=== PATIENT | female | born 1970 | race Caucasian/White ===

== ENCOUNTER 2016-11-20 18:47 | Observation (INO) | payer MEDICAID ==
[~2016-11-20] VITALS: Ht 154.9 cm; Wt 51.7 kg
--- NOTE | ~2016-11-20 | DS ---
PATIENT'S NAME: JANKI BISHOP [facility] AGE: 46 Y [address] ROOM: [id number] [place], [place] [address] LOCATION: [facility] ADMIT DATE: 11/20/2016 Discharge Summary DISCHARGE DATE: FAMILY PHYSICIAN: Physician, Unknown ATTENDING PHYSICIAN: Derick Reid This is a dictation about the overnight event that happened on November 22, 2016, in the early childhood hours. I worked night today and I was not taking care of the patient during her regular day times (I did H/P on patient's day of admission but patient was assigned to different hospitalist the following day after her H/P). The official discharge summary will be dictated by the hospitalist who was taking care of the patient during the daytime. I am the director visual working tonight and just covering tonight, and this dictation is about the event that happened in the early childhood of November 22, 2016. Patient was admitted here for alcohol withdrawal seizure secondary to alcohol use disorder. In the early childhood hours of November 22, 2016, the patient became restless and agitated and wanted to leave the hospital. I came to see the patient. After speaking to the patient, it seemed that the patient was disoriented to people, time, and place. The patient wanted to leave the hospital and insisted that we let her go. The patient actively signed the leave against medical advice form and tried to leave the hospital. Given that the patient is disoriented to people, time, and place, security was notified and the patient was stopped before she could exit the building. I went down with the bottle house quality control technician, Marisol, to see the patient and tried to convince her to stay given that the patient is mentally incapable of making decisions for herself. The patient pushed me away and left the main entrance door, and security incident response specialist and I followed her and also bottle house quality control technician to try to bring her back. The patient would not come back and was combative against us, and [place] [employer] was notified, and security was following the patient to not lose sight of the patient. When police of [place] Department came by, the police shift commander spoke to the patient and brought her back in the police car, and after the police shift commander spoke to the patient, police also agreed that the patient is disoriented, but the patient denies any suicidal ideation or homicidal intent. I spoke to the insurance agency owner, and I explained to him about the reason for admission and the fact that the patient is mentally incompetent to make decision for herself and that we have been trying to call her who is staying at a nearby hotel because they live in [place], [place], but 's phone was off and the nurse left a voice mail, at that time the had not called back. The insurance agency owner said that they cannot EPC her because the patient is not suicidal or homicidal and they cannot force against her will to stay in the hospital even though she is disoriented to people, time, and place. Eventually, the patient spoke to her over the phone when patient called her , but she would not give me the phone to let me talk to her to explain the situation and what was going on. Eventually, police was able to call the again and I was able to speak to the . In addition, before I spoke to the , I already called the on-call Risk Management [place] and explained to her about the situation and what would be the next appropriate step to take in this case. Given that the patient is mentally incompetent to make decisions for herself, Risk Management also PATIENT'S NAME: [facility] AGE: 46 Y [address] ROOM: [address] [address] LOCATION: [facility] ADMIT DATE: 11/20/2016 Discharge Summary DISCHARGE DATE: FAMILY PHYSICIAN: Physician, Unknown ATTENDING PHYSICIAN: Derick Reid agreed that we should ask Yefri Dalal officer to EPC the patient to keep her in the hospital and to be evaluated by a psychiatrist. Then, I spoke to the insurance agency owner again about the conversation I had with the Risk Management and my assessment, but police still refused to EPC her saying that she is not homicidal or suicidal and by the law of the [facility], that the policemen cannot force her to stay here in the hospital. Then, I spoke to the patient's over the phone about all the events, and the patient's says that he will come here to see the patient right now and he will try to convince her to stay in the hospital, but if the patient refuses, then the is going to take her home, he is not going to let the patient stay here in the hospital despite knowing that she is disoriented to people, time, and place and that she is leaving against medical advice. The patient's says that he will take her back home and he will be with her at all times and watch her very closely knowing all the risks of leaving the hospital without completing the proper treatment. The patient's understands all the risks, and when the patient's showed up, he spoke to the policemen, at that time there were 2 policemen (an addtional insurance agency owner showed up), and he also spoke to his , and I had to go to attend to urgent matter because another patient required my attention on the other floor of the hospital. According to the security incident response specialist Elo, when the showed up, the patient refused to stay in the hospital and the patient's took her back to the hotel. The 2 policemen were present and they also agreed to let the take her back. Both policemen said that they cannot EPC her against her will given that the patient's agreed to take the patient home knowing that she is disoriented and did not finish the appropriate medical treatment, and the and the patient both refused to stay in the hospital. I got this information from the security incident response specialist given that I was attending an urgent matter for another patient on the floor which required my immediate attention. When I came back down to the main entrance to look for the patient and the patient's , the policemen and the patient and the patient's had already left the hospital. I tried to call the patient's back again just to double check, but the patient's phone was off and I could not even leave a voicemail. Then, I called Psychiatry. My plan was to call Psychiatry while the patient's was on the way here; however, after speaking to the Psychiatry and went back to check on the patient, the patient had already left. I called the on-call psychiatrist, Dr. Murphy, . I explained the entire events in sequence and the occurred events to the psychiatrist, and he also agreed that in the [facility], the policemen have the right to EPC the patient up to their determination and discretion. In this case, the patient is clearly mentally incompetent to people, time, and place, but 2 policemen both assessed the patient and stated that they cannot EPC the patient because the patient's is willing to take her back home; therefore, both policemen refused to EPC the patient and let the patient go back home with her . Psychiatrist, Dr. Murphy told me that in this case as a physician we cannot do anything given that in the [facility], insurance agency owner is the individual who makes the PATIENT'S NAME: JANKI BISHOP [facility] AGE: 46 Y [address] ROOM: [place] [address] LOCATION: [facility] ADMIT DATE: 11/20/2016 Discharge Summary DISCHARGE DATE: FAMILY PHYSICIAN: Physician, Unknown ATTENDING PHYSICIAN: Derick Reid decision for EPC. Therefore, in this case, both policemen refused to EPC the patient and then let the patient go home with . I then notified the bottle house quality control technician again about the occurred events. Both policemen understand that the patient is mentally incompetent given that the patient is disoriented to people, time, and place, but both policemen still refused to EPC the patient saying that she is not suicidal or homicidal and they cannot force her to stay in the hospital and will be going home with her who also refused to let the patient stay in the hospital and wanted and was willing to take patient home. The complete discharge summary will be dictated by the hospitalist who was taking care of the patient during her daytime. This is only a summary of the overnight event as I was not the daytime physician that was following her. WILLIAM ZHAO MD CC/giannil /[id number] d: 11/22/16 0525 t: 11/29/16 1055, DISCHARGE SUMMARY
--- NOTE | ~2016-11-20 | DS ---
PATIENT'S NAME: JANKI BISHOP [facility] AGE: 46 Y [address] ROOM: [address] [place], [place] [address] LOCATION: [facility] ADMIT DATE: 11/20/2016 Discharge Summary DISCHARGE DATE: 11/22/2016 FAMILY PHYSICIAN: Physician, Unknown ATTENDING PHYSICIAN: Franklin MOREIRA PRINCIPAL DIAGNOSIS: Alcohol withdrawal seizures. SECONDARY DIAGNOSES: 1. Anxiety. 2. Asthma. 3. Acute metabolic encephalopathy due to alcoholic withdrawal. HOSPITAL COURSE: A 46-year-old lady with a longstanding history of alcohol abuse who has been sober for a while. She started drinking and then stopped drinking again. She was admitted to the hospital because of the tonic-clonic seizures. A CAT scan of the head was done, which was unremarkable. Blood work was done, which did show hypokalemia as well as hypomagnesemia. test was negative. Alcohol level was negative. EKG performed showed QTc prolongation at 508 milliseconds, sinus tachycardia with heart rate in the 100s, but no acute ischemic changes. The patient was admitted to our hospital for alcohol withdrawal per [place] protocol. We corrected her electrolyte abnormalities and sent her to the floor. Overnight, it appeared from the discharge summary as well as communication from the overnight physician, Dr. Gates, that the patient became disoriented, and wanted to leave AMA. Attending physician at that point deemed her incompetent to make that decision. [place] [employer] was contacted as well as was contacted. Police refused to EPC her given she was not homicidal or suicidal. decided to take the patient with him and not keep her in the hospital; so, the patient was discharged AMA. MD SID SWEENEY/nilam /[id number] d: 12/07/16 0229 t: 12/08/16 1221, DISCHARGE SUMMARY
--- NOTE | ~2016-11-20 | DS ---
PATIENT'S NAME: JANKI BISHOP [facility] AGE: 46 Y [address] ROOM: [address] [place], [place] [address] [place] [facility] DATE: 11/20/2016 Discharge Summary DISCHARGE DATE: 11/22/2016 FAMILY PHYSICIAN: Physician, Unknown ATTENDING PHYSICIAN: Franklin MOREIRA ADDENDUM: To the overnight event summary on November 22, 2016. OVERNIGHT EVENTS: On November 22, 2016. I called the [place] [employer] and I got the name of the mounted police officer who were here and the public service officer arriving on the scene was officer Douglas Gar and second steward who arrived on the scene was officer Iqra Bowers. The risk management that I spoke to on the phone was Justino. Hospital assistant facility manager was Marisol. The security patrol driver was Elo. I tried to call the again to follow up, but the phone was still off and could not leave voicemail. I worked night today and did not follow the patient during regular days. The full discharge summary will be dictated by the primary attending physician taking care of the patient during the daytime. This summary is only an overnight event summary as I was only covering the nights. MD ANETTE TINOCO/nilam /[id number] d: 11/22/16529 t: 11/29/16 1105, DISCHARGE SUMMARY
--- NOTE | ~2016-11-20 | HP ---
PATIENT'S NAME: JANKI BISHOP [facility] AGE: 46 Y [address] ROOM: [id number] [place], [place] [address] LOCATION: [facility] ADMIT DATE: 11/20/2016 History & Physical DISCHARGE DATE: FAMILY PHYSICIAN: PHYSICIAN, UNKNOWN ATTENDING PHYSICIAN: Franklin MOREIRA DATE OF SERVICE: CHIEF COMPLAINT: Seizure activity x2 in the setting of alcohol withdrawal. HISTORY OF PRESENT ILLNESS: This is a 46-year-old female, who has a long history of alcohol use disorder, and she was sober for a while, but she went back to drinking on and off for the last few weeks, and her last drink was six days ago roughly. She used to drink about one pint of vodka per day. The story is that today when she was at home in the living room around 10 in the morning, her daughter found the patient acting funny. So, the patient's daughter went to call the grandfather, and the grandfather came to see the patient and saw the patient having foaming from the corner of the mouth and also both eyes were rolling backwards, and having a generalized tonic-clonic seizure type activity in all four extremities. This lasted for roughly 2 to 3 minutes according to the patient's grandfather, and then it stopped by itself. The patient was postictal after that. She was postictal for only a few minutes, and then she regained consciousness. The patient does not remember what happened prior to the seizure activity. In the afternoon, around 3 to 4 p.m., the patient's grandfather witnessed another episode of the generalized tonic-clonic seizure activity. This time, it lasted only for like a minute or less. She was in postictal state again, but only for a brief duration. The patient was able to regain consciousness, and again, she has no recollection of what happened. The patient was then brought to the outside facility in [facility], where the patient on arrival was already alert and oriented x3. She was not in distress. CT of the brain over there showed a mild atrophy in the brain, but no acute intracranial abnormality based on the preliminary report of the CT of the head without contrast. Blood work was also performed, and had magnesium of 1.1 and potassium at 2.2. Urinary test was negative, and alcohol level was negative on the saliva. EKG was performed over there, and showed QTc prolongation at 508 msec, sinus tachycardia with heart rate of 100, and no acute ischemic changes. The patient was given p.o. 40 mEq potassium tablet x1, and also 1 L of D5 half-normal saline with 20 mEq of potassium chloride. She also received 2 g of IV magnesium. The patient was transferred here for further care. Upon further questioning, the patient has had alcohol withdrawal episodes before. She cannot really tell me how many times, but she said it was quite a PATIENT'S NAME: JANKI BISHOP [facility] AGE: 46 Y [address] ROOM: [address] [address] LOCATION: [facility] ADMIT DATE: 11/20/2016 History & Physical DISCHARGE DATE: FAMILY PHYSICIAN: PHYSICIAN, UNKNOWN ATTENDING PHYSICIAN: Franklin MOREIRA few times, and the last time she had it was a few weeks to a few months ago that she could remember. However, she has never had alcohol withdrawal seizure before. During the second episode of the seizure activity today, she fell to the ground. She did hit her head against the ground, and she also had a minor episode of epistaxis, which already resolved on its own. REVIEW OF SYSTEMS: As mentioned in the history of present illness. All other systems reviewed were negative, except those mentioned in the history of present illness. PAST MEDICAL HISTORY: 1. Alcohol use disorder. 2. Hypertension. 3. Asthma. 4. Anxiety disorder. 5. Depression. ALLERGIES: PITOCIN, WHICH CAUSES GI UPSET. HOME MEDICATIONS: 1. Gabapentin 300 mg p.o. daily. 2. Losartan 50 mg p.o. daily. The actual home medication list has to be reconciled in the morning to have the list properly checked. SOCIAL HISTORY: The patient is an active cigarette smoker of about one pack per day for the last 20 years, and active alcohol drinker of on and off binge drinking about the last few weeks. Last drink was six days ago, about one pint of vodka. Before that, she was a heavy alcohol drinker for about 15 years of almost half to one pint of vodka everyday or every other day or every two to three days. The patient denies any illegal drugs. PAST SURGICAL HISTORY: None according to the patient. FAMILY HISTORY: Father has diabetes, type 2 and also has a history of stroke. Mother is healthy. PHYSICAL EXAMINATION: PATIENT'S NAME: JANKI BISHOP [facility] AGE: 46 Y [address] ROOM: [id number] [place], [place] [address] LOCATION: [facility] ADMIT DATE: 11/20/2016 History & Physical DISCHARGE DATE: FAMILY PHYSICIAN: PHYSICIAN, UNKNOWN ATTENDING PHYSICIAN: Franklin MOREIRA VITAL SIGNS: At the time of my dictation, temperature was 98.7, heart rate was 92, respirations were 16, blood pressure was 145/96, and saturation was 96% on room air. GENERAL APPEARANCE: Alert and oriented x3, in no acute distress. HEENT: Pupils are equally round and reactive to light. Extraocular muscles are intact. Anicteric sclerae. Nasal turbinates are normal bilaterally. Moist oral mucosa. NECK: No JVD. CARDIOVASCULAR: Regular rate and rhythm. Normal S1 and S2. No murmur. No rubs. No gallops. RESPIRATORY: Clear. Chest wall was nontender to palpation. ABDOMEN: Soft, nontender, and nondistended. Normal bowel sounds. No hepatosplenomegaly. Bowel sounds are present. No palpable mass. EXTREMITIES: No edema in upper or lower extremities. NEUROLOGICAL: Grossly nonfocal. No asterixis. SKIN: No ulcer. No rash. No cyanosis. MUSCULOSKELETAL: No joint pain. No muscle pain. Range of motion was intact. LABORATORY DATA: Lactic acid was 1.1. White blood cells were 7.8, hemoglobin was 13.2, hematocrit was 35.8, and platelets were 71. Glucose of 106, BUN of 4, creatinine of 0.3, sodium of 136, potassium of 3.0, chloride of 100, CO2 of 24, calcium of 7.8, total protein of 6.4, albumin of 3.1, AST of 66, ALT of 39, alkaline phosphatase of 98, total bilirubin of 1.2, direct bilirubin of 0.3, phosphorus of 1.3, GFR of more than 60, indirect bilirubin of 0.9, magnesium of 2.0, anion gap of 15, and globulin of 3.3. INR was 1.0 and PTT was 27. Urinalysis, not yet received. Urine drug screen, not yet received. Free T4 is 0.9 and TSH is 2.34. Alcohol level was less than 0.01. Tylenol level was less than 2. Aspirin level was less than 2.8. IMAGING STUDIES: EKG from the outside facility on November 20, 2016 at 04:17 p.m. showed sinus tachycardia with heart rate at 110, QTc prolongation at 508 msec, and QRS of 90 msec. No acute ischemic changes. Repeat EKG here in our facility at 09:51 p.m. on November 20, 2016 showed sinus rhythm, heart rate of 98, MT of 169 msec, QRS of 93 msec, and QTc of 468 msec. No acute ischemic changes. CT of the head without contrast from the outside facility showed mild atrophic changes. No acute intracranial abnormalities. ASSESSMENT AND PLAN: 1. Regarding her generalized tonic-clonic seizure x2 in the setting of alcohol withdrawal: This is likely from the alcohol withdrawal seizure. PATIENT'S NAME: JANKI BISHOP [facility] AGE: 46 Y [address] ROOM: [address] [address] LOCATION: [facility] ADMIT DATE: 11/20/2016 History & Physical DISCHARGE DATE: FAMILY PHYSICIAN: PHYSICIAN, UNKNOWN ATTENDING PHYSICIAN: Franklin MOREIRA Seizure precaution. She can have a cardiac diet. Aspiration precaution. Fall precaution. Start alcohol withdrawal protocol with p.o. Ativan p.r.n. per CIWA score. In the meantime, I am going to give her one dose of p.o. Valium 5 mg, which is long-acting to control her alcohol withdrawal. IV Ativan 2 mg every five minutes p.r.n. for active seizure. Banana bag 1 L at 150 mL/hr for now. Watch her closely for any recurrent seizure activity. Further plan depends on clinical course. I will also consult knockdown worker to help with alcohol use disorder. 2. Regarding her QTc prolongation: QTc was only mildly prolonged from the outside facility. Magnesium was already replaced. A repeat EKG showed that the hypomagnesemia has already resolved. Check another magnesium in the morning and make sure it is more than 2. 3. Regarding her hypokalemia: We will replace with IV potassium chloride 40 mg x2, given that the patient is feeling nauseous. Therefore, I will avoid the p.o. potassium chloride. The hypokalemia is likely from the nausea and vomiting that the patient was having. The nausea and vomiting are from the alcohol withdrawal symptoms. 4. Regarding her medication noncompliance: She takes gabapentin p.o. at home, but she has been noncompliant. Therefore, withdrawal seizure from gabapentin is less likely in this case. 5. Regarding her hypertension: Her home medications have to be addressed in the morning. For now, the patient will be having the alcohol detox protocol with Lopressor p.r.n. and also clonidine p.r.n. as well. 6. Asthma: The patient's lungs are clear, not in exacerbation. We will order a nebulizer if needed. 7. Regarding her anxiety disorder: Currently, the patient is on the Ativan alcohol withdrawal protocol p.r.n. 8. Regarding her depression: Currently, not suicidal. Home medication has to be addressed in the morning first, then we can continue. 9. Deep venous thrombosis prophylaxis: The patient has thrombocytopenia. This is likely from her chronic alcohol use. I will use Lovenox in this case, in case the patient would have a reaction from heparin that can cause further thrombocytopenia from heparin-induced thrombocytopenia. Further plan depends on clinical course. Time spent on the day of admission was 45 minutes including chart review, interviewing the patient, examining the patient, and addressing all the questions and the concerns that the patient and her family members had at the bedside. I addressed every single question and I went over the plan of care in detail with every family member in the room and also with the patient, and I answered all their questions to their satisfaction. Nurse was also in the room during the whole time. Further plan depends on clinical course, and will be made by the hospitalist, who will be taking over the care starting on November 21, 2016 at 8 a.m. PATIENT'S NAME: JANKI BISHOP [facility] AGE: 46 Y [address] [id number] [address] LOCATION: [facility] ADMIT DATE: 11/20/2016 History & Physical DISCHARGE DATE: FAMILY PHYSICIAN: PHYSICIAN, UNKNOWN ATTENDING PHYSICIAN: Franklin MOREIRA Currently, the patient's family members are in agreement with the plan for tonight and are grateful for the time spent in care and answering questions in detail. MD ANETTE TINOCO/nilam /[id number] D: [id number] T: [id number] HISTORY & PHYSICAL
[2016-11-20 21:41] LABS: BASOPHIL % 0.1 %; HEMATOCRIT 35.8 % (33.0-46.0); HEMOGLOBIN 13.2 g/dL (10.0-15.0); IMMATURE GRANULOCYTE % 0.3 %; LYMPHOCYTE # 0.9 K/uL (0.8-4.0); LYMPHOCYTE % 11.6 %; MCH 35.8 pg (27.0-34.0); MCHC 36.9 gm/dL (32.0-36.5); MONOCYTE # 0.5 K/uL (0.0-1.0); MONOCYTE % 6.3 %; MPV 10.7 fl (9.4-12.4); NEUTROPHIL # (ANC) 6.4 K/uL (1.8-7.8); NEUTROPHIL % 81.7 %; NRBC % 0 /100WBC (0-0.00); PLATELET COUNT 71 K/uL (150-450); RBC 3.69 M/uL (3.50-5.50); WBC 7.8 K/uL (4.0-11.0)
[2016-11-20 21:50] LABS: INR - (THERAPEUTIC) 1.02 (0.92-1.07); PROTIME 10.7 SECONDS (9.8-11.4); PTT 27 SECONDS (25-32)
[2016-11-20 21:57] LABS: ALBUMIN 3.1 gm/dL (3.5-5.0); TOTAL BILIRUBIN 1.2 mg/dL (0.0-1.5); TOTAL PROTEIN 6.4 g/dL (6.0-8.4)
[2016-11-20 22:00] LABS: PHOSPHORUS 1.3 mg/dL (2.5-4.9)
[2016-11-20 22:05] LABS: BLOOD UREA NITROGEN 4 mg/dL (6-24); CALCIUM 7.8 mg/dL (8.5-10.5); CHLORIDE 100 mMol/L (96-110); CO2 24 mMol/L (22-32); CREATININE 0.3 mg/dL (0.5-1.1); ESTIMATED GFR (MDRD EQUATION) > 60; SODIUM 136 mMol/L (135-145)
[2016-11-21 00:29] LABS: BILIRUBIN URINE NEGATIVE (NEGATIVE); BLOOD URINE NEGATIVE /UL (NEGATIVE); GLUCOSE URINE 100 mg/dL (NEGATIVE); KETONE URINE 150 mg/dL (NEGATIVE); LEUKOCYTES URINE 25 /UL (NEGATIVE); NITRITE URINE NEGATIVE (NEGATIVE); PROTEIN URINE 30 mg/dL (NEGATIVE); UROBILINOGEN URINE 4 mg/dL (NORMAL)
[2016-11-21 00:43] LABS: COLOR URINE YELLOW (YELLOW); TURBIDITY URINE 1+ (CLEAR)
[2016-11-21 00:49] LABS: AMORPHOUS URINE 1+ (NEGATIVE); BACTERIA URINE RARE (NEGATIVE); RBC URINE NEGATIVE #/HPF (NEGATIVE); WBC URINE 0-2 #/HPF (NEGATIVE)
[2016-11-21 00:59] LABS: AMPHETAMINE NEGATIVE (NEGATIVE); BARBITURATE NEGATIVE (NEGATIVE); COCAINE NEGATIVE (NEGATIVE); OPIATES NEGATIVE (NEGATIVE)
--- NOTE | 2016-11-21 06:36 | NUR ---
Significant Event: Patient alert, oriented to person, place, inconsistant with time. Forgetful. Tachycardic, BP stable. Cough/sputum present, lung sounds clear and clear and diminished in bases. Bowel sounds active, nauseous occasionally, no bm this shift. Voids per bathroom, 1 assist/gait belt. Adequate UOP. Skin abnormalities noted. PIV x2 intact, d5ns infusing. 80meq kcl 30mmol kphos replaced. Follow up:Transfer.
[2016-11-21 07:55] LABS: BASOPHIL % 0.4 %; EOSINOPHIL % 0.6 %; HEMATOCRIT 38.3 % (33.0-46.0); HEMOGLOBIN 13.5 g/dL (10.0-15.0); LYMPHOCYTE # 0.9 K/uL (0.8-4.0); LYMPHOCYTE % 19.7 %; MCH 35.3 pg (27.0-34.0); MCHC 35.2 gm/dL (32.0-36.5); MCV 100.3 fl (83.0-98.0); MONOCYTE # 0.3 K/uL (0.0-1.0); MONOCYTE % 6.3 %; MPV 10.9 fl (9.4-12.4); NEUTROPHIL # (ANC) 3.5 K/uL (1.8-7.8); NRBC % 0 /100WBC (0-0.00); PLATELET COUNT 69 K/uL (150-450); RBC 3.82 M/uL (3.50-5.50); RDW-CV 14.5 % (11.9-14.6); WBC 4.8 K/uL (4.0-11.0)
[2016-11-21 08:13] LABS: ALBUMIN 2.9 gm/dL (3.5-5.0); ALK PHOS 96 IU/L (33-138); ALT 38 IU/L (12-78); ANION GAP 11.4 (10.0-19.0); AST 70 IU/L (10-40); BLOOD UREA NITROGEN 2 mg/dL (6-24); CHLORIDE 103 mMol/L (96-110); CO2 26 mMol/L (22-32); CREATININE 0.4 mg/dL (0.5-1.1); ESTIMATED GFR (MDRD EQUATION) > 60; MAGNESIUM 1.7 mg/dL (1.8-2.6); POTASSIUM 3.4 mMol/L (3.7-5.1); SODIUM 137 mMol/L (135-145); TOTAL BILIRUBIN 1.2 mg/dL (0.0-1.5); TOTAL PROTEIN 6.3 g/dL (6.0-8.4)
[2016-11-21 08:17] LABS: CALCIUM 7.1 mg/dL (8.5-10.5); PHOSPHORUS 1.4 mg/dL (2.5-4.9)
[2016-11-21] MEDS ORDERED: COZAAR50 MG PO (09:50)
[2016-11-21] MEDS ORDERED: NEURONTIN300 MG PO (09:50)
[2016-11-21] MEDS ORDERED: NAPROSYN500 MG PO (09:50)
[2016-11-21] MEDS ORDERED: ASPIRIN325 MG PO (09:51)
[2016-11-21] MEDS ORDERED: ROBITUSSIN DM120 ML PO (09:51)
--- NOTE | 2016-11-21 13:48 | NUR ---
Patient oriented to person and place, does get confused on the date. Impulsive and forgets to use call light at times, alarms in place and re-education frequently. Remains SR-ST, with SBP stable. Room air, lungs clear. Cardiac diet, appetite fair. Up to bathroom numerous times. PIV x2, saline locked.
--- NOTE | 2016-11-21 19:07 | NUR ---
Significant Event: Follow up: Patient admitted with alcohol withdrawl and seizures. Patient and her young daughter live with her uncle, fell to floor yesterday with seizure activity and was taken to [facility] and later to [facility]. Patient ambulates with standby assist, bed and chair alarms in use at patient is very impulsive and anxious. Given ativan 1 mg for agitation and withdrawl scale of 10. Patient had good relief with ativan. Family members brought supper and she seems to be feeling better. Patient is instructed no to leave the floor.
--- NOTE | 2016-11-22 04:16 | NUR ---
Patient left AMA around 0150. Became very aggressive towards staff and stated that we were holding her hostage. Confused and disoriented. Medina white called. Patient tore out IV and L) hand swelled up. Able to wrap with coban. Patient became more upset with staff stating we had to let her go and that she had a ride home, but when security escorted her to the doors there was no ride. ROSALIA called and handled the rest of the situation.
== END 2016-11-22 01:50 | disposition left against medical advice (07) ==
LOC: GICU 20:51 → GMSU 20:51 → GICU 22:41 → GMSU 11-21 15:18
PROVIDERS: Internal Medicine; ADMIT Internal Medicine
DX: G40.409 Other generalized epilepsy and epileptic syndromes, not intractable, without status epilepticus (principal); J45.909 Unspecified asthma, uncomplicated; I10 Essential (primary) hypertension; F32.9 Major depressive disorder, single episode, unspecified; F41.9 Anxiety disorder, unspecified; E87.6 Hypokalemia; F10.239 Alcohol dependence with withdrawal, unspecified; Z88.8 Allergy status to other drugs, medicaments and biological substances; Z79.899 Other long term (current) drug therapy
CPT/HCPCS: A9270; G0378; G0480; J1644; J1650; J3480; J7030; J7042